=== PATIENT | male | born 1970 | race Caucasian/White ===

== ENCOUNTER 2017-05-07 17:11 | Inpatient (IN) | payer OTHER ==
[~2017-05-07] VITALS: Ht 180.3 cm; Wt 99.9 kg
[2017-05-07] MEDS ORDERED: SODIUM CHLORIDE FLUSH 10ML SYR IVF ONE (17:30)
[2017-05-07] MEDS ORDERED: ASPIRIN 81 MG TABLET CHEW PO ONE (17:30)
[2017-05-07 17:42] LABS: HEMATOCRIT 49.7 % (39.2-51.8); HEMOGLOBIN 16.7 g/dL (13.7-18.0); WHITE BLOOD COUNT 10.3 x10^3/uL (3.4-10)
[2017-05-07 17:51] LABS: BLOOD UREA NITROGEN 8 mg/dL (7-18)
[2017-05-07 17:55] LABS: IS PT STATUS REG ER OR PRE ER? YES
[2017-05-07] MEDS ORDERED: ASPIRIN 81 MG TABLET CHEW ONE (17:55)
[2017-05-07] MEDS ORDERED: ONDANSETRON ODT 4 MG PO PRN ×2 (19:00→19:30)
[2017-05-07] MEDS ORDERED: HYDROmorphone 1 MG/ML, 1ML IM PRN (19:00)
[2017-05-07] MEDS ORDERED: ONDANSETRON 2MG/ML, 2ML ONE ×2 (19:03→19:58)
[2017-05-07] MEDS ORDERED: HYDROmorphone 1 MG/ML, 1ML ONE ×2 (19:03→19:57)
[2017-05-07] MEDS: HYDROmorphone 1 MG/ML, 1ML IVPush PRN ×2 (19:17→20:02)
[2017-05-07] MEDS ORDERED: ONDANSETRON 2MG/ML, 2ML IVPush ONE (19:30)
[2017-05-07] MEDS ORDERED: NITROGLYCERIN 0.4 MG BOTTLE (25 TABS) SL PRN (20:30)
[2017-05-07] MEDS ORDERED: ACETAMINOPHEN 325 MG TABLET PO PRN (20:30)
[2017-05-07] MEDS ORDERED: NITROGLYCERIN 0.4 MG/SPRAY SL PRN (20:30)
[2017-05-07] MEDS: SODIUM CHLORIDE FLUSH 10ML SYR IVF SCH (21:24)
[2017-05-07] MEDS ORDERED: LABETALOL 5MG/ML, 20ML IVPush ONE (21:30)
[2017-05-07 22:33] VITALS: BP 164/105
[2017-05-07] MEDS: morphine SULFATE 10 MG/ML, 1ML IV PRN (23:06)
[2017-05-08] MEDS: morphine SULFATE 10 MG/ML, 1ML IV PRN (00:02)
[2017-05-08 00:19] LABS: IS PT STATUS REG ER OR PRE ER? NO
[2017-05-08 03:28] VITALS: BP 112/69
[2017-05-08] MEDS ORDERED: ASPIRIN 325 MG TABLET EC PO SCH (06:00)
[2017-05-08 06:02] LABS: IS PT STATUS REG ER OR PRE ER? NO
[2017-05-08] MEDS ORDERED: REGADENOSON 0.4 MG/5 ML SYRINGE ONE (08:17)
[2017-05-08 08:30] VITALS: BP 130/88
[2017-05-08] MEDS: SODIUM CHLORIDE FLUSH 10ML SYR IVF SCH (08:44)
[2017-05-08 13:05] VITALS: BP 146/90
[2017-05-08] MEDS ORDERED: DIPHENHYDRAMINE 50 MG/ML, 1ML IVPush PRN (14:00)
[2017-05-08] MEDS ORDERED: METOCLOPRAMIDE 5 MG/ML, 2ML IVPush PRN (14:00)
[2017-05-08 14:30] VITALS: BP 144/90
[2017-05-08] MEDS ORDERED: ASPI-650 PO (19:00)
== END 2017-05-08 18:45 | disposition home or self-care (01) | DRG 313 ==
LOC: ED 19:50 → EDIP 19:54 → 5SO 21:15
PROVIDERS: ADMIT Internal Medicine; ATTEND Internal Medicine
DX: R07.89 Other chest pain (principal); E78.5 Hyperlipidemia, unspecified; I10 Essential (primary) hypertension; G43.909 Migraine, unspecified, not intractable, without status migrainosus; Z79.82 Long term (current) use of aspirin; Z82.49 Family history of ischemic heart disease and other diseases of the circulatory system
CPT/HCPCS: 36415; 70450; 71020; 78452; 80048; 80061; 82040; 83880; 84484; 85025; 93005; 93017; 96374; 96375; 96376; J1170; J2405; J2785; A9502; C9898; J1200; J2270; J2765